=== PATIENT | male | born 1990 | race American Indian/Alaskan Native ===

== ENCOUNTER 2018-08-28 17:34 | Emergency (ER) | payer OTHER ==
--- NOTE | 2018-08-28 17:51 | Event Note ---
ED Screening Note Date of service: 08/28/18 Time: 17:46 ED Screening Note: 28 y/o male 1 month of abd pain. Was seen by Kenyetta Harper. N/V. weakness no energy. Used THC today to curve the pain. This initial assessment/diagnostic orders/clinical plan/treatment(s) is/are subject to change based on patients health status, clinical progression and re- assessment by fellow clinical providers in the ED. Further treatment and workup at subsequent clinical providers discretion. Patient/guardian urged not to elope from the ED as their condition may be serious if not clinically assessed and managed. Initial orders include:
[2018-08-28 18:22] LABS: Basophils # (Auto) 0.1 K/mm3 (0.0-0.1); Basophils % (Auto) 0.7 % (0.0-1.8); Hematocrit 46.6 % (35.5-45.6); Hemoglobin 16.3 gm/dl (11.8-15.2); Lymphocytes # (Auto) 0.5 K/mm3 (1.2-5.4); Lymphocytes % (Auto) 6.3 % (13.4-35.0); Mean Corpuscular HGB Conc 35 % (32-34); Mean Corpuscular Volume 90 fl (84-94); Monocytes # (Auto) 0.3 K/mm3 (0.0-0.8); Monocytes % (Auto) 3.4 % (0.0-7.3); Platelet Count 251 K/mm3 (140-440); Red Blood Count 5.17 M/mm3 (3.65-5.03); Red Cell Distribution Width 12.4 % (13.2-15.2)
[2018-08-28 18:48] LABS: Alanine Aminotransferase 17 units/L (7-56); BUN/Creatinine Ratio 9; Blood Urea Nitrogen 11 mg/dL (9-20); Calcium 9.6 mg/dL (8.4-10.2); Hemolysis Index 12
[2018-08-28] MEDS ORDERED: ATIVAN IV ONE (19:36)
[2018-08-28] MEDS ORDERED: MORPHINE IV ONE (19:36)
[2018-08-28] MEDS ORDERED: TORADOL IV ONE (19:36)
[2018-08-28 20:46] VITALS: BP 146/72
--- NOTE | 2018-08-28 21:25 | Cat Scan Report ---
PROCEDURE: CT abdomen and pelvis with contrast. TECHNIQUE: Computerized axial tomography of the abdomen and pelvis was performed after the administr ation of IV iodinated nonionic contrast. CT DOSE LENGTH PRODUCT: 1056.6 mGycm HISTORY: Abdominal pain. COMPARISONS: None. FINDINGS: The lung bases are clear. There are no pleural effusions. The heart size is normal. The liver, pancre as and spleen appear normal. The gallbladder is present. There is no biliary dilatation. The adrenal glands are not enlarged. Both kidneys appear normal in size and configuration. The abdominal aorta erazo s a normal caliber. There is no retroperitoneal adenopathy. The unopacified gastrointestinal tract is unremarkable. I believe there is a normal appendix visible. The bladder, seminal vesicles and prosta te appear normal. The regional skeleton appears intact. IMPRESSION: Normal studies of the abdomen and pelvis. This document is electronically signed by Jaguar Dawkins MD., August 28 2018 09:23:50 PM ET
--- NOTE | 2018-08-28 21:50 | Emergency Department Report ---
ED Abdominal Pain HPI - General Chief Complaint: Abdominal Pain Stated Complaint: ABDOMINAL PAIN/NAUSEA Time Seen by Provider: 08/28/18 19:36 Source: patient Mode of arrival: Ambulatory Limitations: No Limitations - History of Present Illness Initial Comments: Mr. Lawrence is a 28 year old male who presents with severe abdominal pain. Umbilical. 10 out 10. Vomiting. Pain began immediately after eating spicy chicken wings at restaurant. 1-1/2 months ago he had similar pain after eating a doughnut burger. He also had another episode since that time. Severe sharp crampy pain. No history of surgeries. No history of tobacco use. He smokes marijuana 1-2 times per month. He drinks alcohol occasionally. MD Complaint: abdominal pain -: Gradual, This afternoon Location: periumbilical Severity: moderate, severe Severity scale (0 -10): 3 Quality: cramping, stabbing, aching Consistency: constant Worsens With: eating Associated Symptoms: nausea, vomiting - Related Data Previous Rx's Medication Instructions Recorded Last Taken Type Famotidine [Pepcid] 20 mg PO BID 30 Days #60 tablet 08/28/18 Unknown Rx Promethazine [Phenergan] 25 mg PO Q6HR PRN #10 tab 08/28/18 Unknown Rx Allergies Allergy/AdvReac Type Severity Reaction Status Date / Time apple Allergy Angioedema Verified 08/28/18 17:43 ED Review of Systems ROS: Stated complaint: ABDOMINAL PAIN/NAUSEA Other details as noted in HPI Comment: All other systems reviewed and negative Constitutional: denies: fever, malaise Gastrointestinal: abdominal pain, nausea, vomiting ED Past Medical Hx - Past Medical History Previous Medical History?: No Hx Asthma: Yes - Surgical History Past Surgical History?: No - Family History Family history: no significant - Social History Smoking Status: Never Smoker Substance Use Type: Alcohol, Marijuana - Medications Home Medications: Home Medications Medication Instructions Recorded Confirmed Last Taken Type Famotidine [Pepcid] 20 mg PO BID 30 Days #60 tablet 08/28/18 Unknown Rx Promethazine [Phenergan] 25 mg PO Q6HR PRN #10 tab 08/28/18 Unknown Rx ED Physical Exam - General Limitations: No Limitations General appearance: alert, in no apparent distress - Head Head exam: Present: atraumatic, normocephalic - Eye Eye exam: Present: normal appearance - ENT ENT exam: Present: mucous membranes moist - Neck Neck exam: Present: normal inspection, full ROM - Respiratory Respiratory exam: Present: normal lung sounds bilaterally. Absent: respiratory distress, wheezes, rales, rhonchi - Cardiovascular Cardiovascular Exam: Present: regular rate, normal rhythm, normal heart sounds. Absent: systolic murmur, diastolic murmur, rubs, gallop - GI/Abdominal GI/Abdominal exam: Present: soft, normal bowel sounds. Absent: distended, tenderness, guarding, rebound - Rectal Rectal exam: Present: deferred - Extremities Exam Extremities exam: Present: normal inspection - Back Exam Back exam: Present: normal inspection - Neurological Exam Neurological exam: Present: alert, oriented X3 - Psychiatric Psychiatric exam: Present: normal affect, normal mood - Skin Skin exam: Present: warm, dry, intact, normal color. Absent: rash ED Course Vital Signs 08/28/18 08/28/18 08/28/18 17:46 20:05 20:06 Temperature 98.3 F Pulse Rate 92 H Respiratory 22 18 18 Rate Blood Pressure 124/73 Blood Pressure [Right] O2 Sat by Pulse 100 Oximetry 08/28/18 08/28/18 08/28/18 20:30 20:35 20:36 Temperature 98.6 F Pulse Rate 79 Respiratory 18 20 20 Rate Blood Pressure Blood Pressure 146/72 [Right] O2 Sat by Pulse 100 Oximetry 08/28/18 20:40 Temperature Pulse Rate Respiratory 20 Rate Blood Pressure Blood Pressure [Right] O2 Sat by Pulse 100 Oximetry ED Medical Decision Making - Lab Data Result diagrams: 08/28/18 18:09 08/28/18 18:09 Laboratory Results - last 24 hr 08/28/18 08/28/18 18:09 18:09 WBC 7.7 RBC 5.17 H Hgb 16.3 H Hct 46.6 H MCV 90 MCH 32 MCHC 35 H RDW 12.4 L Plt Count 251 Lymph % (Auto) 6.3 L [place] % (Auto) 3.4 Eos % (Auto) 0.0 Baso % (Auto) 0.7 Lymph # 0.5 L [place] # 0.3 Eos # 0.0 Baso # 0.1 Seg Neutrophils % 89.6 H Seg Neutrophils # 6.9 Sodium 139 Potassium 3.8 Chloride 101.9 Carbon Dioxide 19 L Anion Gap 22 BUN 11 Creatinine 1.2 Estimated GFR > 60 BUN/Creatinine Ratio 9 Glucose 131 H Calcium 9.6 Total Bilirubin 1.10 AST 16 ALT 17 Alkaline Phosphatase 48 Total Protein 7.7 Albumin 5.0 Albumin/Globulin Ratio 1.9 Lipase 21 - Radiology Data Radiology results: report reviewed CT abdomen and pelvis: No acute process according to radiology report - Medical Decision Making Mr. Wolfe presents with recurrent abdominal pain. No evidence of acute inflammatory process. Differential diagnosis includes peptic ulcer disease, irritable bowel syndrome, cannabanoid hyperemesis syndrome Prescribed famotidine. Also prescribed promethazine. Critical care attestation.: If time is entered above; I have spent that time in minutes in the direct care of this critically ill patient, excluding procedure time. ED Disposition Clinical Impression: Acute abdominal pain, Peptic ulcer disease, Irritable bowel syndrome Disposition: TO HOME OR SELFCARE Is pt being admited?: No Does the pt Need Aspirin: No Condition: Stable Instructions: Peptic Ulcer (ED), Diet for Ulcers and Gastritis (ED), Irritable Bowel Syndrome (ED) Prescriptions: Famotidine [Pepcid] 20 mg PO BID 30 Days #60 tablet Promethazine [Phenergan] 25 mg PO Q6HR PRN #10 tab PRN Reason: Nausea Referrals: BALBINA KIRKLAND MD [Primary Care Provider] - 3-5 Days
[2018-08-28] MEDS ORDERED: PEPCID PO ONE (21:53)
[2018-08-28] MEDS ORDERED: ZOFRAN ODT PO ONE (21:53)
[2018-08-28] MEDS ORDERED: NORCO 5/325 PO ONE (21:53)
== END 2018-08-28 22:00 | disposition home or self-care (01) ==
LOC: ED 17:34
DX: K25.9 Gastric ulcer, unspecified as acute or chronic, without hemorrhage or perforation (principal); K58.9 Irritable bowel syndrome, unspecified; Z91.018 Allergy to other foods
CPT/HCPCS: 36415; 74177; 80053; 83690; 85025; 96374; 96375; 99284; J1885; J2060; J2270; Q9967; Q0162

== ENCOUNTER 2019-01-22 11:42 | Emergency (ER) | payer SELFPAY ==
--- NOTE | 2019-01-22 11:52 | Event Note ---
ED Screening Note ED Screening Note: N/V epigastric abd pain no diarrhea had a similar episode in June states he was diagnosed with "gastroenteritis" states then he was diagnosed with possible ulcer/acid reflux +marijuana socially ETOH This initial assessment/diagnostic orders/clinical plan/treatment(s) is/are subject to change based on patients health status, clinical progression and re- assessment by fellow clinical providers in the ED. Further treatment and workup at subsequent clinical providers discretion. Patient/guardian urged not to elope from the ED as their condition may be serious if not clinically assessed and managed. Initial orders include: labs
[2019-01-22] MEDS ORDERED: ONDANSETRON 4 MG ODT TAB PO ONE (11:54)
[2019-01-22] MEDS ORDERED: ONDANSETRON 4 MG ODT TAB ONE (11:57)
[2019-01-22] MEDS ORDERED: FAMOTIDINE 20 MG/2 ML INJ IV ONE (13:21)
[2019-01-22] MEDS ORDERED: MORPHINE 4 MG/1 ML INJ IV ONE ×2 (13:21→15:18)
[2019-01-22] MEDS ORDERED: SODIUM CHLORIDE 0.9% 1000 ML 1,000 ML IV ONE (13:21)
[2019-01-22] MEDS ORDERED: KETOROLAC 30 MG/1 ML INJ IV ONE (13:21)
--- NOTE | 2019-01-22 13:26 | Emergency Department Report ---
ED Abdominal Pain HPI - General Chief Complaint: Abdominal Pain Stated Complaint: ABD PAIN,SWEATING Time Seen by Provider: 01/22/19 11:49 Source: patient Mode of arrival: Ambulatory Limitations: No Limitations - History of Present Illness Initial Comments: Guy is a 28-year-old male with history of "psychosomatic abdominal pain" and marijuana use who presents with severe abdominal pain which began at 9 AM this morning. Sharp diffuse pain with nausea vomiting. He stated that he he had been treated for Lexapro in the past in order to deal with stress. He said that in the past year he has been going through a lot in his life. He has not taken this medication in one year. Consequently he was told that the abdominal pain was "psychosomatic". He desires community resources in order to get back on this medication Lexapro. He self medicates with copious amount of marijuana use according to his report. He denies suicidal or homicidal ideation. Denies hallucinations. MD Complaint: abdominal pain -: Gradual, hour(s) (4) Location: diffuse Severity scale (0 -10): 10 Quality: aching, sharp Consistency: constant Improves With: nothing Worsens With: nothing Associated Symptoms: nausea, vomiting. denies: diarrhea - Related Data Previous Rx's Medication Instructions Recorded Last Taken Type Famotidine [Pepcid] 20 mg PO BID 30 Days #60 tablet 08/28/18 Unknown Rx Promethazine [Phenergan] 25 mg PO Q6HR PRN #10 tab 08/28/18 Unknown Rx Promethazine [Phenergan] 25 mg PO Q6HR PRN #10 tab 01/22/19 Unknown Rx Allergies Allergy/AdvReac Type Severity Reaction Status Date / Time apple Allergy Angioedema Verified 01/22/19 12:22 ED Review of Systems ROS: Stated complaint: ABD PAIN,SWEATING Other details as noted in HPI Comment: All other systems reviewed and negative Constitutional: denies: fever, malaise Gastrointestinal: abdominal pain, nausea, vomiting, diarrhea Psychiatric: anxiety, depression. denies: auditory hallucinations, visual hallucinations, homicidal thoughts, suicidal thoughts ED Past Medical Hx - Past Medical History Previous Medical History?: Yes Hx Asthma: Yes - Surgical History Past Surgical History?: No - Social History Smoking Status: Current Every Day Smoker Substance Use Type: Alcohol, Marijuana - Medications Home Medications: Home Medications Medication Instructions Recorded Confirmed Last Taken Type Famotidine [Pepcid] 20 mg PO BID 30 Days #60 tablet 08/28/18 Unknown Rx Promethazine [Phenergan] 25 mg PO Q6HR PRN #10 tab 08/28/18 Unknown Rx Promethazine [Phenergan] 25 mg PO Q6HR PRN #10 tab 01/22/19 Unknown Rx ED Physical Exam - General Limitations: No Limitations General appearance: alert, in no apparent distress, other (holding his stomach laying in a position on his right side curled up ) - Head Head exam: Present: atraumatic, normocephalic - Eye Eye exam: Present: normal appearance - ENT ENT exam: Present: mucous membranes moist - Neck Neck exam: Present: normal inspection - Respiratory Respiratory exam: Present: normal lung sounds bilaterally. Absent: respiratory distress, wheezes, rales, rhonchi - Cardiovascular Cardiovascular Exam: Present: regular rate, normal rhythm, normal heart sounds. Absent: systolic murmur, diastolic murmur, rubs, gallop - GI/Abdominal GI/Abdominal exam: Present: soft, normal bowel sounds. Absent: distended, tenderness, guarding, rebound - Rectal Rectal exam: Present: deferred - Extremities Exam Extremities exam: Present: normal inspection - Neurological Exam Neurological exam: Present: alert, oriented X3 - Psychiatric Psychiatric exam: Present: normal affect, normal mood - Skin Skin exam: Present: warm, dry, intact, normal color. Absent: rash ED Course Vital Signs 01/22/19 11:48 Temperature 98.3 F Pulse Rate 89 Respiratory 19 Rate Blood Pressure 145/107 O2 Sat by Pulse 89 Oximetry ED Medical Decision Making - Lab Data Result diagrams: 01/22/19 14:13 01/22/19 14:13 - Radiology Data Radiology results: report reviewed CT abdomen and pelvis without acute process. - Medical Decision Making Mr. Huitron presents with 1-2 years of abdominal pain worse today. Differential diagnosis includes peptic ulcer disease, irritable bowel syndrome, predominantly hyperemesis syndrome. No evidence of appendicitis, obstruction, pancreatitis or acute inflammatory process otherwise according to workup today. Prescribed promethazine. Recommended cessation of marijuana use. Referred to [facility] for mental health services. Critical care attestation.: If time is entered above; I have spent that time in minutes in the direct care of this critically ill patient, excluding procedure time. ED Disposition Clinical Impression: Acute abdominal pain, Depression, Marijuana dependence Disposition: - TO HOME OR SELFCARE Is pt being admited?: No Does the pt Need Aspirin: No Condition: Stable Instructions: Abdominal Pain (ED) Prescriptions: Promethazine [Phenergan] 25 mg PO Q6HR PRN #10 tab PRN Reason: Nausea [facility] - [facility] Days
[2019-01-22 14:31] LABS: Hematocrit 45.6 % (35.5-45.6); Hemoglobin 15.1 gm/dl (11.8-15.2); Mean Corpuscular HGB Conc 33 % (32-34); Mean Corpuscular Volume 92 fl (84-94); Platelet Count 180 K/mm3 (140-440); Red Blood Count 4.97 M/mm3 (3.65-5.03); Red Cell Distribution Width 13.2 % (13.2-15.2)
[2019-01-22 14:44] LABS: Alanine Aminotransferase 15 units/L (7-56); Albumin 4.5 g/dL (3.9-5); BUN/Creatinine Ratio 12; Blood Urea Nitrogen 12 mg/dL (9-20); Hemolysis Index 15
[2019-01-22 16:15] LABS: Basophils % (Manual) 0 % (0.0-1.8); Total Cells Counted 100
[2019-01-22 16:16] LABS: Large Platelets 1+; Platelet Estimate Consistent w Auto; RBC Morphology Normal
--- NOTE | 2019-01-22 16:51 | Cat Scan Report ---
CT ABDOMEN AND PELVIS WITHOUT CONTRAST INDICATION: Unspecified abdominal pain. COMPARISON: CT abdomen and pelvis with contrast from 08/28/2018. TECHNIQUE: Axial, coronal and sagittal CT imaging of the abdomen and pelvis was performed without co ntrast. Lack of intravenous contrast limits evaluation of the vascular and solid organs. All CT sca ns at this location are performed using CT dose reduction for ALARA by means of automated exposure co ntrol. FINDINGS: LOWER CHEST: No significant abnormality. LIVER: No significant abnormality. BILIARY: No significant abnormality. PANCREAS: No significant abnormality. SPLEEN: No significant abnormality. ADRENALS: No significant abnormality. KIDNEYS AND URETERS: No significant abnormality. GI TRACT: No significant abnormality of the stomach, small bowel or colon. Unremarkable appendix. PERITONEUM: No free fluid. No free air. No fluid collection. LYMPH NODES: No significant adenopathy. VASCULATURE: No significant abnormality. URINARY BLADDER: No significant abnormality. REPRODUCTIVE ORGANS: No significant abnormality. ADDITIONAL FINDINGS: None. SKELETAL SYSTEM: No significant abnormality. IMPRESSION: No acute abnormality of the abdomen or pelvis. Signer Name: Van George MD Signed: 01/22/2019 4:47 PM Workstation Name: [email or web address]
[2019-01-22 17:44] VITALS: BP 148/90
== END 2019-01-22 17:44 | disposition home or self-care (01) ==
LOC: ED 11:42
DX: R10.84 Generalized abdominal pain (principal); R11.2 Nausea with vomiting, unspecified; F32.9 Major depressive disorder, single episode, unspecified; F12.20 Cannabis dependence, uncomplicated; F17.200 Nicotine dependence, unspecified, uncomplicated; J45.909 Unspecified asthma, uncomplicated; Z91.018 Allergy to other foods
CPT/HCPCS: 36415; 74176; 80053; 83690; 85007; 85025; 96361; 96374; 96375; 96376; 99284; J1885; J2270; J7030; Q0162